=== PATIENT | female | born 1990 ===

== ENCOUNTER 2018-05-10 05:51 | Inpatient (IN) | payer OTHER ==
[~2018-05-10] VITALS: Ht 160 cm; Wt 80.7 kg
[2018-05-10] MEDS ORDERED: ALBUTEROL0.63 MG/3 IH (11:45)
[2018-05-10] MEDS ORDERED: BUDEO.25 IH (11:47)
[2018-05-10] MEDS ORDERED: AMPICILLIN TRI500 MG PO (11:48)
== END 2018-05-12 17:20 | disposition home or self-care (01) | DRG 798 ==
LOC: LDR 05:51 → OB/GYN 21:29
PROVIDERS: Obstetrics & Gynecology
PROC: 0UL70ZZ Occlusion of Bilateral Fallopian Tubes, Open Approach (ICD-10-PCS; 2018-05-10)
PROC: 0HQ9XZZ Repair Perineum Skin, External Approach (ICD-10-PCS; 2018-05-10)
PROC: 10907ZC Drainage of Amniotic Fluid, Therapeutic from Products of Conception, Via Natural or Artificial Opening (ICD-10-PCS; 2018-05-10)
PROC: 3E033VJ Introduction of Other Hormone into Peripheral Vein, Percutaneous Approach (ICD-10-PCS; 2018-05-10)
PROC: 4A1HXCZ Monitoring of Products of Conception, Cardiac Rate, External Approach (ICD-10-PCS; 2018-05-10)
PROC: 10E0XZZ Delivery of Products of Conception, External Approach (ICD-10-PCS; principal; 2018-05-10 18:00)
DX: O70.0 First degree perineal laceration during delivery (principal); Z37.0 Single live birth; Z3A.39 39 weeks gestation of pregnancy; Z30.2 Encounter for sterilization; Z22.330 Carrier of Group B streptococcus